=== PATIENT | male | born 1935 | race African-American/Black ===

== ENCOUNTER 2016-11-30 16:30 | Observation (INO) | payer OTHER ==
[~2016-11-30] VITALS: Ht 180.3 cm; Wt 102.7 kg
[~2016-11-30 16:30] MED LIST: ALBUTEROL SULF8.5 GM IH; ALPHAGAN P100 DROP/1 BOTH EYES; ALPHAGAN P100 DROP/5 BOTH EYES; AMLODIPINE BESYL5 MG PO; ANTIVERT25 MG PO; ASPIR-LOW81 MG PO; ASPIRIN325 MG PO; ATORVASTATIN CA80 MG PO; AVODART0.5 MG; AVODART0.5 MG PO; Antivert PO; B-COMPLEX PLUS1 EACH PO; BAYER ASPIRIN325 M1 PO; BENICAR40 MG; BENICAR40 MG PO; CILOSTAZOL100 MG PO; COQ-10100 MG PO; COUMADIN,JANTOVE1 MG PO; DIOVAN40 MG PO; FISH OIL300 MG PO; FLEXERIL5 MG PO; IMDUR30 MG PO; ISOSORBIDE MONO30 MG PO; LO-DOSE ASPIRIN81 M1 PO; LOPRESSOR50 MG PO; MECLIZINE HCL25 M3 PO; MECLIZINE HCL25 MG PO; METOPROLOL TART25 MG PO; METOPROLOL TART50 MG PO; MOTRIN600 MG PO; MOTRIN800 MG PO; NEXIUM40 MG PO; NORFLEX100 MG; NORFLEX100 MG PO; NORVASC10 MG PO; Norvasc PO; PRINIVIL10 MG PO; PROAIR HFA8.5 GM IH; Pletal PO; Proventil,Ventolin H IH; Robitussin DM PO; SELENIUM200 MCG PO; SIMVASTATIN80 MG; SIMVASTATIN80 MG PO; TRAMADOL HCL50 MG PO; TRAVATAN 0100 DROP/5 RIGHT EYE; TRAVATAN 050 DROP/2. BOTH EYES; TRAVATAN Z5 ML RIGHT EYE; TRENTAL400 MG PO; Tessalon Perle PO; VOLTAREN 1% GE100 GM TP; VOLTAREN75 MG; Voltaren PO; ZESTRIL,PRINIVI10 M1; ZOCOR80 M1 PO; Zithromax PO
[2016-11-30 17:00] LABS: HEMATOCRIT 37.8 % (38.0-50.0); MCHC 34.4 G/DL (30.0-36.0); MCV 95.9 FL (86-99); MEAN PLAT.VOLUME 10.6 uM^3 (9.0-12.4); PLATELET COUNT 175 K/uL (156-360); RBC DIS.WIDTH-CV 12.5 % (11.8-14.6); RBC DIS.WIDTH-SD 44.7 % (39-53); RED BLOOD COUNT 3.94 M/uL (4.00-5.50); WHITE BLOOD COUNT 7.3 K/uL (4.1-10.2)
[2016-11-30 17:11] LABS: CHLORIDE 99 mEq/L (99-109); POTASSIUM 3.9 mEq/L (3.7-5.4); SODIUM 130 mEq/L (136-147)
[2016-11-30 17:12] LABS: GLUCOSE 123 mg/dL (70-99)
[2016-11-30 17:14] LABS: ANION GAP 8 MEQ/L (2-14)
[2016-11-30 17:16] LABS: GFR ESTIMATE (CALCULATED) 58 mL/min/
[2016-11-30 17:17] LABS: UREA NITROGEN (BUN) 18 mg/dL (9-23)
[2016-11-30 17:21] LABS: TROP-I INTERPRETATION NEGATIVE; TROPONIN-I < 0.01 ng/mL (0.0-0.30)
[2016-11-30] MEDS ORDERED: LO-DOSE ASPIRIN81 M1 PO (17:57)
[2016-11-30] MEDS ORDERED: NEXIUM 24HR20 MG PO (17:58)
[2016-11-30] MEDS ORDERED: DIOVAN80 MG PO (17:59)
[2016-11-30] MEDS ORDERED: CARTIA XT120 MG PO (18:00)
[2016-11-30] MEDS ORDERED: CARAFATE1 GM PO (18:00)
[2016-11-30] MEDS ORDERED: RANITIDINE HCL300 MG PO (18:00)
[2016-11-30] MEDS ORDERED: PROMETHAZINE HC25 M1 PO (18:01)
[2016-11-30 19:44] LABS: ADD MIUA? YES; BILIRUBIN NEGATIVE; BLOOD NEGATIVE; COLOR YELLOW ((YELLOW)); GLUCOSE (STRIP) NEGATIVE; KETONES NEGATIVE; LEUKOCYTES NEGATIVE; NITRITE NEGATIVE; PROTEIN (STRIP) NEGATIVE; SPECIFIC GRAVITY 1.015 (1.000-1.030); UROBILINOGEN 0.2 MG/DL (0.2-1.0)
[2016-11-30 19:53] LABS: URIC ACID 6.3 mg/dL (3.1-9.2)
[2016-11-30 20:04] LABS: BACTERIA NONE SEEN /HPF; EPITHELIAL CELLS RARE /HPF; MUCUS TRACE /LPF; RED BLOOD CELLS NONE SEEN /HPF (0-5); WHITE BLOOD CELLS 0-5 /HPF (0-5)
[2016-11-30 21:10] VITALS: BP 150/82
[2016-11-30 23:38] LABS: TOTAL BILIRUBIN 0.4 mg/dL (0.0-1.0)
[2016-11-30 23:39] LABS: ALKALINE PHOSPHATASE 97 IU/L (3-129)
[2016-11-30 23:41] LABS: DIRECT BILIRUBIN 0.2 mg/dL (0.0-0.3)
[2016-11-30 23:42] LABS: LIPASE 73 U/L (1.0-51.0)
[2016-11-30 23:46] LABS: TROP-I INTERPRETATION NEGATIVE; TROPONIN-I < 0.01 ng/mL (0.0-0.30)
[2016-11-30 23:53] VITALS: BP 136/82
[2016-12-01] VITALS (7 sets, daily range): BP systolic 120–166; BP diastolic 75–90
[2016-12-01 05:55] LABS: HEMATOCRIT 37.2 % (38.0-50.0); MCH 33.2 PG (29.0-34.0); MCHC 34.4 G/DL (30.0-36.0); MCV 96.6 FL (86-99); MEAN PLAT.VOLUME 11.4 uM^3 (9.0-12.4); PLATELET COUNT 174 K/uL (156-360); RBC DIS.WIDTH-CV 12.8 % (11.8-14.6); RBC DIS.WIDTH-SD 45.3 % (39-53); RED BLOOD COUNT 3.85 M/uL (4.00-5.50); WHITE BLOOD COUNT 6.8 K/uL (4.1-10.2)
[2016-12-01 06:25] LABS: ANION GAP 6 MEQ/L (2-14); CHLORIDE 103 MEQ/L (99-109); GFR ESTIMATE (CALCULATED) > 59 mL/min/; GLUCOSE 121 mg/dL (70-99); POTASSIUM 4.1 MEQ/L (3.7-5.4); SAMPLE HEMOLYSIS CHECK 0; SAMPLE ICTERIC CHECK 0; SAMPLE LIPEMIA CHECK 0; SODIUM 135 MEQ/L (136-147); UREA NITROGEN (BUN) 16 mg/dL (9-23)
[2016-12-01 06:33] LABS: TROP-I INTERPRETATION NEGATIVE; TROPONIN-I 0.02 ng/mL (0.0-0.30)
[2016-12-01 20:09] LABS: TROP-I INTERPRETATION NEGATIVE; TROPONIN-I 0.02 ng/mL (0.0-0.30)
[2016-12-02] VITALS (7 sets, daily range): BP systolic 106–189; BP diastolic 63–93
[2016-12-02 09:40] LABS: MCH 34.2 PG (29.0-34.0); MCHC 34.9 G/DL (30.0-36.0); MCV 98.1 FL (86-99); MEAN PLAT.VOLUME 11.3 uM^3 (9.0-12.4); PLATELET COUNT 159 K/uL (156-360); RBC DIS.WIDTH-CV 12.7 % (11.8-14.6); RBC DIS.WIDTH-SD 45.5 % (39-53); RED BLOOD COUNT 3.77 M/uL (4.00-5.50); WHITE BLOOD COUNT 4.8 K/uL (4.1-10.2)
[2016-12-02 10:05] LABS: ANION GAP 5 MEQ/L (2-14); CHLORIDE 107 MEQ/L (99-109); GFR ESTIMATE (CALCULATED) > 59 mL/min/; GLUCOSE 114 mg/dL (70-99); LIPASE 46 U/L (1.0-51.0); POTASSIUM 3.8 MEQ/L (3.7-5.4); SAMPLE HEMOLYSIS CHECK 0; SAMPLE ICTERIC CHECK 0; SAMPLE LIPEMIA CHECK 0; SODIUM 138 MEQ/L (136-147); UREA NITROGEN (BUN) 13 mg/dL (9-23)
[2016-12-03 00:33] VITALS: BP 136/77
[2016-12-03 04:20] VITALS: BP 152/90
[2016-12-03 09:20] VITALS: BP 167/93
[2016-12-03 09:38] LABS: HEMATOCRIT 39.1 % (38.0-50.0); MCH 33.2 PG (29.0-34.0); MCHC 34.3 G/DL (30.0-36.0); MCV 96.8 FL (86-99); MEAN PLAT.VOLUME 10.7 uM^3 (9.0-12.4); PLATELET COUNT 166 K/uL (156-360); RBC DIS.WIDTH-CV 12.6 % (11.8-14.6); RBC DIS.WIDTH-SD 45.1 % (39-53); RED BLOOD COUNT 4.04 M/uL (4.00-5.50); WHITE BLOOD COUNT 5.7 K/uL (4.1-10.2)
[2016-12-03 10:12] LABS: ANION GAP 6 MEQ/L (2-14); CHLORIDE 104 MEQ/L (99-109); GFR ESTIMATE (CALCULATED) > 59 mL/min/; GLUCOSE 157 mg/dL (70-99); SAMPLE HEMOLYSIS CHECK 0; SAMPLE ICTERIC CHECK 0; SAMPLE LIPEMIA CHECK 0; SODIUM 136 MEQ/L (136-147); UREA NITROGEN (BUN) 13 mg/dL (9-23)
[2016-12-03 11:22] VITALS: BP 134/87
== END 2016-12-03 13:30 | disposition home or self-care (01) ==
LOC: EME 16:30 → 4EAST 18:55 → EDOF 18:55 → 4EAST 21:01
PROVIDERS: Emergency Medicine; Hospitalist; Internal Medicine; Physician Assistant
DX: R07.89 Other chest pain (principal); I95.9 Hypotension, unspecified; E86.0 Dehydration; J44.9 Chronic obstructive pulmonary disease, unspecified; E11.9 Type 2 diabetes mellitus without complications; I13.0 Hypertensive heart and chronic kidney disease with heart failure and stage 1 through stage 4 chronic kidney disease, or unspecified chronic kidney disease; I50.9 Heart failure, unspecified; N18.2 Chronic kidney disease, stage 2 (mild); I25.2 Old myocardial infarction; G47.33 Obstructive sleep apnea (adult) (pediatric); K21.9 Gastro-esophageal reflux disease without esophagitis; E78.5 Hyperlipidemia, unspecified; Z95.1 Presence of aortocoronary bypass graft; Z95.5 Presence of coronary angioplasty implant and graft; R10.9 Unspecified abdominal pain; N28.1 Cyst of kidney, acquired; N40.1 Benign prostatic hyperplasia with lower urinary tract symptoms; R35.1 Nocturia; E66.9 Obesity, unspecified; Z68.30 Body mass index [BMI] 30.0-30.9, adult; N17.9 Acute kidney failure, unspecified; E87.1 Hypo-osmolality and hyponatremia; N52.9 Male erectile dysfunction, unspecified
CPT/HCPCS: 71020; 74176; 76705; 80048; 80076; 81003; 82436; 82533 91; 82607; 83690; 83880; 84133; 84300; 84443; 84484; 84550; 85027; 93005; 99281; 99285; G0378; J1644; J7030

== ENCOUNTER 2016-12-08 11:56 | Day surgery (SDC) | payer OTHER ==
[~2016-12-08] VITALS: Ht 180.3 cm; Wt 95.3 kg
[~2016-12-08 11:56] MED LIST changes: +CARAFATE1 GM PO; +CARTIA XT120 MG PO; +DIOVAN80 MG PO; +NEXIUM 24HR20 MG PO; +PROMETHAZINE HC25 M1 PO; +RANITIDINE HCL300 MG PO
== END 2016-12-08 14:07 | disposition home or self-care (01) ==
LOC: PAIN 11:56 → SDC 13:00 → PAIN 13:00
DX: M47.812 Spondylosis without myelopathy or radiculopathy, cervical region (principal); M54.2 Cervicalgia; V49.60XS Unspecified car occupant injured in collision with unspecified motor vehicles in traffic accident, sequela; M47.816 Spondylosis without myelopathy or radiculopathy, lumbar region; I10 Essential (primary) hypertension; E78.5 Hyperlipidemia, unspecified; E11.9 Type 2 diabetes mellitus without complications; I73.9 Peripheral vascular disease, unspecified; G47.30 Sleep apnea, unspecified; K21.9 Gastro-esophageal reflux disease without esophagitis; I25.10 Atherosclerotic heart disease of native coronary artery without angina pectoris; Z95.1 Presence of aortocoronary bypass graft; Z86.73 Personal history of transient ischemic attack (TIA), and cerebral infarction without residual deficits; Z85.3 Personal history of malignant neoplasm of breast; Z79.82 Long term (current) use of aspirin; Z79.891 Long term (current) use of opiate analgesic; Z88.0 Allergy status to penicillin
CPT/HCPCS: J1030; J3010; S0020

== ENCOUNTER 2016-12-19 09:06 | Day surgery (SDC) | payer OTHER ==
[~2016-12-19] VITALS: Ht 180.3 cm; Wt 95.3 kg
== END 2016-12-19 11:20 | disposition home or self-care (01) ==
LOC: PAIN 09:06
DX: M47.812 Spondylosis without myelopathy or radiculopathy, cervical region (principal); M54.2 Cervicalgia; M50.20 Other cervical disc displacement, unspecified cervical region; M47.816 Spondylosis without myelopathy or radiculopathy, lumbar region; M54.5 Low back pain; I25.10 Atherosclerotic heart disease of native coronary artery without angina pectoris; E78.5 Hyperlipidemia, unspecified; M62.81 Muscle weakness (generalized); E66.9 Obesity, unspecified; Z68.30 Body mass index [BMI] 30.0-30.9, adult; I73.9 Peripheral vascular disease, unspecified; K21.0 Gastro-esophageal reflux disease with esophagitis; G47.30 Sleep apnea, unspecified; Z85.3 Personal history of malignant neoplasm of breast; Z79.82 Long term (current) use of aspirin; Z79.891 Long term (current) use of opiate analgesic; Z86.73 Personal history of transient ischemic attack (TIA), and cerebral infarction without residual deficits; Z95.1 Presence of aortocoronary bypass graft; Z88.0 Allergy status to penicillin
CPT/HCPCS: J1030; J2250; J3010

== ENCOUNTER 2016-12-22 16:29 | Inpatient (IN) | payer OTHER ==
[~2016-12-22] VITALS: Ht 180.3 cm; Wt 98.5 kg
[2016-12-22 17:03] LABS: EOSINOPHIL (%) 0.2 % (0-5); HEMATOCRIT 37.4 % (38.0-50.0); IMMATURE GRANULOCYTE (%) 0.8 % (0.0-0.7); IMMATURE GRANULOCYTE COUNT 0.1 K/uL; LYMPHOCYTE COUNT 1.4 K/uL (1.0-2.8); MCH 33.4 PG (29.0-34.0); MCHC 34.8 G/DL (30.0-36.0); MCV 96.1 FL (86-99); MEAN PLAT.VOLUME 11.5 uM^3 (9.0-12.4); MONOCYTE (%) 6.9 % (3-12); MONOCYTE COUNT 0.8 K/uL (0-0.8); NEUTROPHIL (%) 79.7 % (45-76); PLATELET COUNT 194 K/uL (156-360); RBC DIS.WIDTH-CV 13.2 % (11.8-14.6); RBC DIS.WIDTH-SD 46.7 % (39-53); RED BLOOD COUNT 3.89 M/uL (4.00-5.50); WHITE BLOOD COUNT 11.2 K/uL (4.1-10.2)
[2016-12-22 17:22] LABS: AMYLASE 79 IU/L (1-118); CHLORIDE 98 mEq/L (99-109); POTASSIUM 5.1 mEq/L (3.7-5.4); SODIUM 128 mEq/L (136-147)
[2016-12-22 17:24] LABS: GLUCOSE 230 mg/dL (70-99)
[2016-12-22 17:25] LABS: ANION GAP 9 MEQ/L (2-14)
[2016-12-22 17:27] LABS: SERUM ETHYL ALCOHOL < 10 mg/dL
[2016-12-22 17:28] LABS: GFR ESTIMATE (CALCULATED) > 59 mL/min/; UREA NITROGEN (BUN) 18 mg/dL (9-23)
[2016-12-22 17:31] LABS: LIPASE 76 U/L (1.0-51.0)
[2016-12-22 18:38] LABS: INTER. NORMALIZED RATIO 1.1; PROTHROMBIN TIME 10.8 (9.2-11.2); PTT 24.4 (25-32)
[2016-12-22 20:45] VITALS: BP 150/68
[2016-12-22 20:53] VITALS: BP 170/71
[2016-12-22 21:00] VITALS: BP 129/67
[2016-12-22 22:00] VITALS: BP 126/56
[2016-12-22 22:28] LABS: METH RESISTANT S AUREUS PCR NEGATIVE (NEGATIVE); PROBE CHECK PASS; SPECIMEN PROCESSING CONTROL PASS
[2016-12-22 23:00] VITALS: BP 118/26
[2016-12-23] VITALS (21 sets, daily range): BP systolic 94–184; BP diastolic 26–92
[2016-12-23 02:38] LABS: ADD MIUA? YES; BILIRUBIN NEGATIVE; BLOOD MODERATE; COLOR YELLOW ((YELLOW)); GLUCOSE (STRIP) NEGATIVE; KETONES NEGATIVE; LEUKOCYTES NEGATIVE; NITRITE NEGATIVE; PROTEIN (STRIP) NEGATIVE; UROBILINOGEN 0.2 MG/DL (0.2-1.0)
[2016-12-23 02:51] LABS: BACTERIA NONE SEEN /HPF; EPITHELIAL CELLS NONE SEEN /HPF; MUCUS TRACE /LPF; UCUL ADDED? NO
[2016-12-23 02:56] LABS: ADD MIUA? YES; BILIRUBIN NEGATIVE; BLOOD MODERATE; GLUCOSE (STRIP) NEGATIVE; KETONES NEGATIVE; LEUKOCYTES NEGATIVE; NITRITE NEGATIVE; PROTEIN (STRIP) NEGATIVE; UROBILINOGEN 0.2 MG/DL (0.2-1.0)
[2016-12-23 03:00] LABS: UCUL ADDED? NO
[2016-12-23 03:01] LABS: COLOR YELLOW ((YELLOW))
[2016-12-23 03:34] LABS: AMPHETAMINE NEGATIVE (500 ng/mL); COCAINE NEGATIVE (150 ng/mL); METHAMPHETAMINE NEGATIVE (500 ng/mL); PHENCYCLIDINE NEGATIVE (25 ng/mL); THC CANNABINOIDS NEGATIVE (50 ng/mL)
[2016-12-23 03:35] LABS: ADD MEDTOX COMMENT Y; BARBITURATES NEGATIVE (200 ng/mL); BENZODIAZEPINES NEGATIVE (150 ng/mL); INTERNAL CONTROLS VALID? YES; METHADONE NEGATIVE (200 ng/mL); OPIATES (MORPHINE) PRESUMPTIVE POSITIVE (100 ng/mL); OXYCODONE NEGATIVE (100 ng/mL); PROPOXYPHENE NEGATIVE (300 ng/mL); TRICYCLIC ANTIDEPRESSANTS NEGATIVE (300 ng/mL)
[2016-12-23 06:54] LABS: HEMATOCRIT 35.3 % (38.0-50.0); MCHC 34.6 G/DL (30.0-36.0); MCV 98.3 FL (86-99); RBC DIS.WIDTH-CV 13.4 % (11.8-14.6); RBC DIS.WIDTH-SD 48.2 % (39-53); RED BLOOD COUNT 3.59 M/uL (4.00-5.50); WHITE BLOOD COUNT 11.1 K/uL (4.1-10.2)
[2016-12-23 07:42] LABS: PLAT.SUFFICIENCY ADEQUATE; PLATELET CLUMPS PRESENT - PLATELET COUNT APPEARS ADQ.
[2016-12-23 08:03] LABS: ALKALINE PHOSPHATASE 96 IU/L (3-129); ANION GAP ND MEQ/L (2-14); GFR ESTIMATE (CALCULATED) 47 mL/min/; GLUCOSE 165 mg/dL (70-99); SAMPLE HEMOLYSIS CHECK 0; SAMPLE ICTERIC CHECK 0; SAMPLE LIPEMIA CHECK 0; TOTAL BILIRUBIN 0.9 MG/DL (0.0-1.0); UREA NITROGEN (BUN) 23 mg/dL (9-23)
[2016-12-23 08:08] LABS: PLATELET COUNT UNABLE TO REPORT K/uL (156-360)
[2016-12-23 09:13] LABS: CHLORIDE 96 MEQ/L (99-109); POTASSIUM 5.9 MEQ/L (3.7-5.4); SODIUM 129 MEQ/L (136-147)
[2016-12-24] VITALS (20 sets, daily range): BP systolic 109–215; BP diastolic 55–88
[2016-12-24 07:55] LABS: EOSINOPHIL (%) 0.8 % (0-5); EOSINOPHIL COUNT 0.1 K/uL (0-0.3); HEMATOCRIT 27.4 % (38.0-50.0); IMMATURE GRANULOCYTE (%) 0.6 % (0.0-0.7); IMMATURE GRANULOCYTE COUNT 0.1 K/uL; INSTRUMENT ABS NEUTROPHIL CT 6.4 K/uL; LYMPHOCYTE COUNT 1.1 K/uL (1.0-2.8); MCH 33.5 PG (29.0-34.0); MCHC 34.3 G/DL (30.0-36.0); MCV 97.5 FL (86-99); MEAN PLAT.VOLUME 11.3 uM^3 (9.0-12.4); MONOCYTE (%) 12.4 % (3-12); MONOCYTE COUNT 1.1 K/uL (0-0.8); NEUTROPHIL (%) 73.3 % (45-76); NEUTROPHIL COUNT 6.4 K/uL (1.8-6.4); RBC DIS.WIDTH-CV 13.2 % (11.8-14.6); RBC DIS.WIDTH-SD 47.6 % (39-53); WHITE BLOOD COUNT 8.8 K/uL (4.1-10.2)
[2016-12-24 07:57] LABS: PLATELET COUNT 125 K/uL (156-360); RED BLOOD COUNT 2.81 M/uL (4.00-5.50)
[2016-12-24 08:24] LABS: ANION GAP 5 MEQ/L (2-14); CHLORIDE 92 MEQ/L (99-109); GFR ESTIMATE (CALCULATED) > 59 mL/min/; GLUCOSE 153 mg/dL (70-99); MAGNESIUM 1.9 mg/dl (1.3-2.7); POTASSIUM 4.6 MEQ/L (3.7-5.4); SAMPLE HEMOLYSIS CHECK 0; SAMPLE ICTERIC CHECK 0; SAMPLE LIPEMIA CHECK 0; SODIUM 122 MEQ/L (136-147); UREA NITROGEN (BUN) 24 mg/dL (9-23)
[2016-12-25] VITALS (22 sets, daily range): BP systolic 102–182; BP diastolic 52–98
[2016-12-25 05:59] LABS: ANION GAP 5 MEQ/L (2-14); CHLORIDE 96 MEQ/L (99-109); GFR ESTIMATE (CALCULATED) > 59 mL/min/; GLUCOSE 172 mg/dL (70-99); POTASSIUM 4.4 MEQ/L (3.7-5.4); SAMPLE HEMOLYSIS CHECK 0; SAMPLE ICTERIC CHECK 0; SAMPLE LIPEMIA CHECK 0; SODIUM 126 MEQ/L (136-147); UREA NITROGEN (BUN) 19 mg/dL (9-23)
[2016-12-26 00:10] VITALS: BP 139/96
[2016-12-26 08:57] VITALS: BP 141/82
[2016-12-26 15:59] VITALS: BP 130/87
[2016-12-26 23:50] VITALS: BP 138/70
[2016-12-27 07:48] VITALS: BP 140/95
[2016-12-27 16:00] VITALS: BP 142/72
[2016-12-27 19:23] VITALS: BP 153/73
[2016-12-27 23:49] VITALS: BP 133/90
[2016-12-28 03:57] VITALS: BP 139/87
[2016-12-28 08:26] VITALS: BP 142/86
[2016-12-28 11:11] VITALS: BP 175/98
[2016-12-28 16:29] VITALS: BP 129/72
[2016-12-28 19:57] LABS: BASE EXCESS 0.4 mEq/L (-3 to +3); BICARBONATE 24.5 mEq/L (22-26); CARBOXY HGB 1.9 % (0-5); COMMENTS - BLOOD GASES A+C+; METHEMOGLOBIN 1.3 % (0-1.5); PCO2 36 mm Hg (35-45); PO2 68 mm Hg (80-100); SITE RB; pH 7.44 (7.35-7.45)
[2016-12-28 19:58] VITALS: BP 138/81
[2016-12-28 19:58] LABS: DEVICE CPAP; O2 FLOW 2 L/MIN
[2016-12-28 20:01] LABS: EOSINOPHIL (%) 2.5 % (0-5); EOSINOPHIL COUNT 0.2 K/uL (0-0.3); HEMATOCRIT 24.9 % (38.0-50.0); IMMATURE GRANULOCYTE (%) 0.7 % (0.0-0.7); IMMATURE GRANULOCYTE COUNT 0.1 K/uL; INSTRUMENT ABS NEUTROPHIL CT 6.5 K/uL; LYMPHOCYTE COUNT 1.2 K/uL (1.0-2.8); MCH 33.6 PG (29.0-34.0); MCHC 34.5 G/DL (30.0-36.0); MCV 97.3 FL (86-99); MEAN PLAT.VOLUME 10.5 uM^3 (9.0-12.4); MONOCYTE (%) 9.9 % (3-12); MONOCYTE COUNT 0.9 K/uL (0-0.8); NEUTROPHIL (%) 72.8 % (45-76); NEUTROPHIL COUNT 6.5 K/uL (1.8-6.4); PLATELET COUNT 151 K/uL (156-360); RBC DIS.WIDTH-CV 13.2 % (11.8-14.6); RBC DIS.WIDTH-SD 47.4 % (39-53); RED BLOOD COUNT 2.56 M/uL (4.00-5.50); WHITE BLOOD COUNT 8.9 K/uL (4.1-10.2)
[2016-12-28 20:27] LABS: ANION GAP 7 MEQ/L (2-14); CHLORIDE 93 MEQ/L (99-109); POTASSIUM 4.3 MEQ/L (3.7-5.4); SAMPLE HEMOLYSIS CHECK 0; SAMPLE ICTERIC CHECK 0; SAMPLE LIPEMIA CHECK 0; SODIUM 125 MEQ/L (136-147)
[2016-12-28 20:33] LABS: GFR ESTIMATE (CALCULATED) > 59 mL/min/; GLUCOSE 194 mg/dL (70-99); UREA NITROGEN (BUN) 16 mg/dL (9-23)
[2016-12-28 23:13] VITALS: BP 170/77
[2016-12-29 04:48] VITALS: BP 145/70
[2016-12-29 07:40] VITALS: BP 171/83
[2016-12-29 09:45] LABS: EOSINOPHIL (%) 1.7 % (0-5); EOSINOPHIL COUNT 0.2 K/uL (0-0.3); HEMATOCRIT 25.8 % (38.0-50.0); IMMATURE GRANULOCYTE (%) 0.7 % (0.0-0.7); IMMATURE GRANULOCYTE COUNT 0.1 K/uL; INSTRUMENT ABS NEUTROPHIL CT 6.8 K/uL; MCH 33.9 PG (29.0-34.0); MCHC 35.7 G/DL (30.0-36.0); MCV 95.2 FL (86-99); MEAN PLAT.VOLUME 11.4 uM^3 (9.0-12.4); MONOCYTE (%) 9.1 % (3-12); MONOCYTE COUNT 0.8 K/uL (0-0.8); NEUTROPHIL (%) 77.2 % (45-76); NEUTROPHIL COUNT 6.8 K/uL (1.8-6.4); PLATELET COUNT 168 K/uL (156-360); RBC DIS.WIDTH-CV 13.2 % (11.8-14.6); RBC DIS.WIDTH-SD 46.2 % (39-53); RED BLOOD COUNT 2.71 M/uL (4.00-5.50); WHITE BLOOD COUNT 8.8 K/uL (4.1-10.2)
[2016-12-29 10:49] LABS: ANION GAP 11 MEQ/L (2-14); CHLORIDE 90 MEQ/L (99-109); GFR ESTIMATE (CALCULATED) > 59 mL/min/; GLUCOSE 164 mg/dL (70-99); POTASSIUM 4.1 MEQ/L (3.7-5.4); SAMPLE HEMOLYSIS CHECK 0; SAMPLE ICTERIC CHECK 0; SAMPLE LIPEMIA CHECK 0; SODIUM 125 MEQ/L (136-147); UREA NITROGEN (BUN) 16 mg/dL (9-23)
[2016-12-29] MEDS ORDERED: NORCO 5/3251 TABLET PO (11:08)
[2016-12-29] MEDS ORDERED: VALIUM5 MG PO (11:08)
[2016-12-29 11:48] VITALS: BP 184/85
== END 2016-12-29 15:57 | DRG 510 ==
LOC: TRA 16:29 → 3EAST 17:56 → 4WEST 17:56 → EDOF 17:56 → 4WEST 20:25 → 3EAST 12-26 00:06
PROVIDERS: Emergency Medicine; Internal Medicine Pulmonary Disease; Surgery
PROC: 0HQ0XZZ Repair Scalp Skin, External Approach (ICD-10-PCS; principal; 2016-12-22)
PROC: 0PSJ04Z Reposition Left Radius with Internal Fixation Device, Open Approach (ICD-10-PCS; 2016-12-24)
DX: S52.132A Displaced fracture of neck of left radius, initial encounter for closed fracture (principal); S06.5X9A Traumatic subdural hemorrhage with loss of consciousness of unspecified duration, initial encounter; S12.500A Unspecified displaced fracture of sixth cervical vertebra, initial encounter for closed fracture; I95.9 Hypotension, unspecified; I27.2 Other secondary pulmonary hypertension; M48.54XA Collapsed vertebra, not elsewhere classified, thoracic region, initial encounter for fracture; I74.19 Embolism and thrombosis of other parts of aorta; E87.1 Hypo-osmolality and hyponatremia; V43.52XA Car driver injured in collision with other type car in traffic accident, initial encounter; Z95.5 Presence of coronary angioplasty implant and graft; Z85.3 Personal history of malignant neoplasm of breast; Z95.1 Presence of aortocoronary bypass graft; E78.5 Hyperlipidemia, unspecified; G47.33 Obstructive sleep apnea (adult) (pediatric); I12.9 Hypertensive chronic kidney disease with stage 1 through stage 4 chronic kidney disease, or unspecified chronic kidney disease; I25.10 Atherosclerotic heart disease of native coronary artery without angina pectoris; I25.2 Old myocardial infarction; J98.11 Atelectasis; K21.9 Gastro-esophageal reflux disease without esophagitis; N18.2 Chronic kidney disease, stage 2 (mild); N40.0 Benign prostatic hyperplasia without lower urinary tract symptoms; S01.01XA Laceration without foreign body of scalp, initial encounter; S12.600A Unspecified displaced fracture of seventh cervical vertebra, initial encounter for closed fracture; S16.1XXA Strain of muscle, fascia and tendon at neck level, initial encounter; G62.9 Polyneuropathy, unspecified; R06.09 Other forms of dyspnea; N28.9 Disorder of kidney and ureter, unspecified; M25.429 Effusion, unspecified elbow; M25.512 Pain in left shoulder; M25.521 Pain in right elbow; M79.662 Pain in left lower leg; R09.89 Other specified symptoms and signs involving the circulatory and respiratory systems; E66.9 Obesity, unspecified; S52.122A Displaced fracture of head of left radius, initial encounter for closed fracture; H11.32 Conjunctival hemorrhage, left eye; M50.322 Other cervical disc degeneration at C5-C6 level; M50.323 Other cervical disc degeneration at C6-C7 level
CPT/HCPCS: 36600; 70450; 70486; 71010; 71260; 71275; 72040; 72125; 72129; 72132; 73030; 73060; 73070; 73080; 73090; 73200; 73590; 74177; 76000; 80048; 80053; 81003; 82150; 82803; 83690; 83735; 84100; 84999; 85025; 85027; 85610; 85730; 86900; 86901; 87641; 93005; 93306; 94640; 94660; 94799; 97530 GP; 99202; C1713; C1769; G0480; J0131; J0360; J1100; J1170; J1940; J2270; J2405; J3010; J7030; J7120; S0020

== ENCOUNTER 2016-12-31 00:28 | Inpatient (IN) | payer OTHER ==
[~2016-12-31] VITALS: Ht 180.3 cm; Wt 101.1 kg
[~2016-12-31 00:28] MED LIST changes: +NORCO 5/3251 TABLET PO; +VALIUM5 MG PO
[2016-12-31 02:25] LABS: HEMATOCRIT 24.2 % (38.0-50.0); MCH 33.1 PG (29.0-34.0); MCHC 35.1 G/DL (30.0-36.0); MCV 94.2 FL (86-99); MEAN PLAT.VOLUME 10.9 uM^3 (9.0-12.4); PLATELET COUNT 200 K/uL (156-360); RBC DIS.WIDTH-CV 12.6 % (11.8-14.6); RBC DIS.WIDTH-SD 43.6 % (39-53); RED BLOOD COUNT 2.57 M/uL (4.00-5.50); WHITE BLOOD COUNT 9.4 K/uL (4.1-10.2)
[2016-12-31 02:34] LABS: CHLORIDE 93 mEq/L (99-109); POTASSIUM 3.9 mEq/L (3.7-5.4); SODIUM 127 mEq/L (136-147)
[2016-12-31 02:35] LABS: GLUCOSE 166 mg/dL (70-99)
[2016-12-31 02:37] LABS: ANION GAP 11 MEQ/L (2-14)
[2016-12-31 02:39] LABS: GFR ESTIMATE (CALCULATED) > 59 mL/min/
[2016-12-31 02:40] LABS: UREA NITROGEN (BUN) 15 mg/dL (9-23)
[2016-12-31 02:43] LABS: D-DIMER ELISA > 4.00 mg/L FEU (< 0.57)
[2016-12-31 02:44] LABS: TROP-I INTERPRETATION NEGATIVE; TROPONIN-I 0.04 ng/mL (0.0-0.30)
[2016-12-31 05:47] VITALS: BP 150/82
[2016-12-31] MEDS ORDERED: OMEPRAZOLE20 MG PO (06:01)
[2016-12-31] MEDS ORDERED: IRON325 M1 PO (06:02)
[2016-12-31] MEDS ORDERED: LATANOPROST2.5 ML RIGHT EYE (06:04)
[2016-12-31] MEDS ORDERED: LOSARTAN POTASS50 MG PO (06:07)
[2016-12-31] MEDS ORDERED: VITAMIN C250 MG PO (06:08)
[2016-12-31 07:24] VITALS: BP 150/80
[2016-12-31 11:34] VITALS: BP 142/92
[2016-12-31 15:54] VITALS: BP 124/69
[2016-12-31 19:39] VITALS: BP 137/71
[2017-01-01] VITALS (7 sets, daily range): BP systolic 108–161; BP diastolic 61–78
[2017-01-02 04:38] VITALS: BP 118/62
[2017-01-02 08:00] VITALS: BP 143/79
[2017-01-02] MEDS ORDERED: ESOMEPRAZOLE MA20 MG PO (11:26)
[2017-01-02] MEDS ORDERED: METOPROLOL TART75 MG PO (11:31)
[2017-01-02] MEDS ORDERED: DUONEB 2.5-0.5 M3 ML AEROSOL (11:32)
[2017-01-02] MEDS ORDERED: NORCO 5/3251 TABLET PO (11:34)
[2017-01-02 14:51] VITALS: BP 138/77
[2017-01-02 15:45] VITALS: BP 120/73
[2017-01-02 20:23] VITALS: BP 136/80
[2017-01-02 23:40] VITALS: BP 184/86
[2017-01-03] VITALS (7 sets, daily range): BP systolic 144–180; BP diastolic 70–88
[2017-01-03 21:53] LABS: C DIFF TOXIN NEGATIVE (NEGATIVE)
[2017-01-03 21:56] LABS: PROBE CHECK PASS; SPECIMEN PROCESSING CONTROL PASS
[2017-01-04 00:28] VITALS: BP 173/87
[2017-01-04 03:46] VITALS: BP 173/74
[2017-01-04 08:05] VITALS: BP 180/90
[2017-01-04 13:10] VITALS: BP 142/76
== END 2017-01-04 14:37 | DRG 982 ==
LOC: EME → EDBD 00:28 → EME 00:28 → EDOF 04:26 → 3EAST 04:26
PROVIDERS: Emergency Medicine; Physician Assistant Surgical
PROC: 0PSJ04Z Reposition Left Radius with Internal Fixation Device, Open Approach (ICD-10-PCS; principal; 2016-12-31)
PROC: 5A09357 Assistance with Respiratory Ventilation, Less than 24 Consecutive Hours, Continuous Positive Airway Pressure (ICD-10-PCS; principal; 2016-12-31)
DX: S06.5X9A Traumatic subdural hemorrhage with loss of consciousness of unspecified duration, initial encounter (principal); S52.132A Displaced fracture of neck of left radius, initial encounter for closed fracture; R09.02 Hypoxemia; S22.32XA Fracture of one rib, left side, initial encounter for closed fracture; I11.0 Hypertensive heart disease with heart failure; I50.9 Heart failure, unspecified; G47.33 Obstructive sleep apnea (adult) (pediatric); E78.5 Hyperlipidemia, unspecified; Z79.899 Other long term (current) drug therapy; I25.9 Chronic ischemic heart disease, unspecified; E11.9 Type 2 diabetes mellitus without complications; V43.52XD Car driver injured in collision with other type car in traffic accident, subsequent encounter; I25.2 Old myocardial infarction; Z79.82 Long term (current) use of aspirin; Z95.1 Presence of aortocoronary bypass graft; Z74.01 Bed confinement status; R09.89 Other specified symptoms and signs involving the circulatory and respiratory systems; I51.3 Intracardiac thrombosis, not elsewhere classified
CPT/HCPCS: 71020; 71275; 72131; 74176; 80048; 83880; 84484; 85027; 85379; 87493; 93005; 94640; 94640 76; 94660; 94760; 94799; 97530 GO; 97530 GP; 99281; 99285; J2270; J2405; J7040

== ENCOUNTER 2017-03-26 14:39 | Observation (INO) | payer OTHER ==
[~2017-03-26] VITALS: Ht 180.3 cm; Wt 93.6 kg
[~2017-03-26 14:39] MED LIST changes: +DUONEB 2.5-0.5 M3 ML AEROSOL; +ESOMEPRAZOLE MA20 MG PO; +IRON325 M1 PO; +LATANOPROST2.5 ML BOTH EYES; +LOSARTAN POTASS50 MG PO; +METOPROLOL TART75 MG PO; +OMEPRAZOLE20 MG PO; +VITAMIN C250 MG PO
[2017-03-26 15:47] LABS: EOSINOPHIL (%) 7.4 % (0-5); EOSINOPHIL COUNT 0.4 K/uL (0-0.3); HEMATOCRIT 31.2 % (38.0-50.0); IMMATURE GRANULOCYTE (%) 0.2 % (0.0-0.7); INSTRUMENT ABS NEUTROPHIL CT 3.2 K/uL; LYMPHOCYTE COUNT 1.6 K/uL (1.0-2.8); MCH 30.7 PG (29.0-34.0); MCHC 33.7 G/DL (30.0-36.0); MCV 91.2 FL (86-99); MEAN PLAT.VOLUME 9.9 uM^3 (9.0-12.4); MONOCYTE (%) 8.4 % (3-12); MONOCYTE COUNT 0.5 K/uL (0-0.8); NEUTROPHIL (%) 55.6 % (45-76); NEUTROPHIL COUNT 3.2 K/uL (1.8-6.4); PLATELET COUNT 186 K/uL (156-360); RBC DIS.WIDTH-CV 13.6 % (11.8-14.6); RBC DIS.WIDTH-SD 45.6 % (39-53); RED BLOOD COUNT 3.42 M/uL (4.00-5.50); WHITE BLOOD COUNT 5.7 K/uL (4.1-10.2)
[2017-03-26 15:52] LABS: INTER. NORMALIZED RATIO 1.1; PROTHROMBIN TIME 12.3 SEC (10.2-12.9)
[2017-03-26 15:55] LABS: CHLORIDE 103 mEq/L (99-109); POTASSIUM 3.8 mEq/L (3.7-5.4); PTT 28.7 SEC (25-37); SODIUM 132 mEq/L (136-147)
[2017-03-26 15:57] LABS: GLUCOSE 134 mg/dL (70-99)
[2017-03-26 15:59] LABS: ANION GAP 6 MEQ/L (2-14); TOTAL BILIRUBIN 0.3 mg/dL (0.0-1.0)
[2017-03-26 16:01] LABS: ALKALINE PHOSPHATASE 124 IU/L (3-129); GFR ESTIMATE (CALCULATED) > 59 mL/min/
[2017-03-26 16:02] LABS: UREA NITROGEN (BUN) 11 mg/dL (9-23)
[2017-03-26 16:03] LABS: DIRECT BILIRUBIN 0.1 mg/dL (0.0-0.3)
[2017-03-26 16:05] LABS: LIPASE 54 U/L (1.0-51.0)
[2017-03-26 16:07] LABS: TROP-I INTERPRETATION NEGATIVE; TROPONIN-I 0.02 ng/mL (0.0-0.30)
[2017-03-26 16:50] LABS: ADD MIUA? NO; BILIRUBIN NEGATIVE; BLOOD NEGATIVE; COLOR STRAW ((YELLOW)); GLUCOSE (STRIP) NEGATIVE; KETONES NEGATIVE; LEUKOCYTES NEGATIVE; NITRITE NEGATIVE; PROTEIN (STRIP) NEGATIVE; SPECIFIC GRAVITY 1.009 (1.000-1.030); UCUL ADDED? NO; UROBILINOGEN 0.2 MG/DL (0.2-1.0)
[2017-03-26] MEDS ORDERED: VALSARTAN80 MG PO (19:30)
[2017-03-26] MEDS ORDERED: MIRTAZAPINE30 MG PO (19:30)
[2017-03-26 22:53] VITALS: BP 135/99
[2017-03-26 23:57] VITALS: BP 164/88
[2017-03-27] LABS: TROP-I INTERPRETATION NEGATIVE; TROPONIN-I 0.02 ng/mL (0.0-0.30)
[2017-03-27 03:46] VITALS: BP 168/78
[2017-03-27 05:50] LABS: HEMATOCRIT 32.6 % (38.0-50.0); MCV 93.9 FL (86-99); MEAN PLAT.VOLUME 11.3 uM^3 (9.0-12.4); PLATELET COUNT 191 K/uL (156-360); RBC DIS.WIDTH-SD 47.9 % (39-53); RED BLOOD COUNT 3.47 M/uL (4.00-5.50); WHITE BLOOD COUNT 5.6 K/uL (4.1-10.2)
[2017-03-27 06:11] LABS: ANION GAP 8 MEQ/L (2-14); CHLORIDE 105 MEQ/L (99-109); GFR ESTIMATE (CALCULATED) > 59 mL/min/; GLUCOSE 140 mg/dL (70-99); POTASSIUM 4.1 MEQ/L (3.7-5.4); SAMPLE HEMOLYSIS CHECK 0; SAMPLE ICTERIC CHECK 0; SAMPLE LIPEMIA CHECK 0; SODIUM 137 MEQ/L (136-147); UREA NITROGEN (BUN) 11 mg/dL (9-23)
[2017-03-27 06:15] LABS: TROP-I INTERPRETATION NEGATIVE; TROPONIN-I 0.02 ng/mL (0.0-0.30)
[2017-03-27 08:16] VITALS: BP 156/93
[2017-03-27 11:52] VITALS: BP 137/79
[2017-03-27] MEDS ORDERED: ROBAXIN500 MG PO (14:34)
[2017-03-27] MEDS ORDERED: ULTRAM50 MG PO (14:34)
== END 2017-03-27 15:33 | disposition home or self-care (01) ==
LOC: EME 14:39 → EDOF 20:51 → 5WEST 20:51 → EDOF 20:51 → ENRESERV 20:53 → 5WEST 22:26 → ENPENDDIS 03-27 → 5WEST 03-27 15:33
PROVIDERS: Emergency Medicine; Hospitalist
DX: R07.9 Chest pain, unspecified (principal); M79.604 Pain in right leg; M79.605 Pain in left leg; R10.31 Right lower quadrant pain; N28.1 Cyst of kidney, acquired; I25.10 Atherosclerotic heart disease of native coronary artery without angina pectoris; I12.9 Hypertensive chronic kidney disease with stage 1 through stage 4 chronic kidney disease, or unspecified chronic kidney disease; N18.9 Chronic kidney disease, unspecified; E11.22 Type 2 diabetes mellitus with diabetic chronic kidney disease; Z95.1 Presence of aortocoronary bypass graft; Z95.5 Presence of coronary angioplasty implant and graft; E78.5 Hyperlipidemia, unspecified; E66.9 Obesity, unspecified; I25.2 Old myocardial infarction; Z85.3 Personal history of malignant neoplasm of breast; N40.0 Benign prostatic hyperplasia without lower urinary tract symptoms; K42.9 Umbilical hernia without obstruction or gangrene; K21.9 Gastro-esophageal reflux disease without esophagitis; Z90.11 Acquired absence of right breast and nipple; Z79.82 Long term (current) use of aspirin; Z88.0 Allergy status to penicillin
CPT/HCPCS: 71010; 74176; 80048; 80076; 81003; 82550 91; 83605; 83690; 83880; 84484; 85025; 85027; 85610; 85730; 93005; 94660; 99281; 99285; G0378; J0360; J1644; J1885; J2270; J2405; J7030

== ENCOUNTER 2017-06-08 13:18 | Day surgery (SDC) | payer OTHER ==
[~2017-06-08] VITALS: Ht 180.3 cm; Wt 94.3 kg
[~2017-06-08 13:18] MED LIST changes: +MIRTAZAPINE30 MG PO; +REMERON30 M2 PO; +ROBAXIN500 MG PO; +ULTRAM50 MG PO; +VALSARTAN80 MG PO
[2017-06-08 14:24] LABS: POINT-OF-CARE METER ID UU14174212
== END 2017-06-08 16:00 | disposition home or self-care (01) ==
LOC: PAIN 13:18 → SDC 14:30 → PAIN 16:00
PROVIDERS: Anesthesiology Pain Medicine
DX: M47.812 Spondylosis without myelopathy or radiculopathy, cervical region (principal); M54.2 Cervicalgia; G89.29 Other chronic pain; M50.31 Other cervical disc degeneration, high cervical region; M47.816 Spondylosis without myelopathy or radiculopathy, lumbar region; I25.10 Atherosclerotic heart disease of native coronary artery without angina pectoris; R51 Headache; E11.9 Type 2 diabetes mellitus without complications; K21.9 Gastro-esophageal reflux disease without esophagitis; I10 Essential (primary) hypertension; E78.5 Hyperlipidemia, unspecified; G47.30 Sleep apnea, unspecified; Z88.0 Allergy status to penicillin; Z79.82 Long term (current) use of aspirin
CPT/HCPCS: 82948; J1030; J2250; J3010; S0020

== ENCOUNTER 2017-06-15 13:47 | Day surgery (SDC) | payer OTHER ==
[~2017-06-15] VITALS: Ht 180.3 cm; Wt 94.3 kg
== END 2017-06-15 15:40 | disposition home or self-care (01) ==
LOC: PAIN 13:47 → SDC 14:30 → PAIN 15:40
PROVIDERS: Anesthesiology Pain Medicine
PROC: 3E0T3TZ Introduction of Destructive Agent into Peripheral Nerves and Plexi, Percutaneous Approach (ICD-10-PCS; principal; 2017-06-15)
PROC: BR141ZZ Fluoroscopy of Cervical Facet Joint(s) using Low Osmolar Contrast (ICD-10-PCS; principal; 2017-06-15)
DX: M47.812 Spondylosis without myelopathy or radiculopathy, cervical region (principal); M54.2 Cervicalgia; G89.29 Other chronic pain; R51 Headache; M47.816 Spondylosis without myelopathy or radiculopathy, lumbar region; I25.10 Atherosclerotic heart disease of native coronary artery without angina pectoris; E11.9 Type 2 diabetes mellitus without complications; I10 Essential (primary) hypertension; E78.5 Hyperlipidemia, unspecified; K21.0 Gastro-esophageal reflux disease with esophagitis; I73.9 Peripheral vascular disease, unspecified; G47.30 Sleep apnea, unspecified; Z79.891 Long term (current) use of opiate analgesic; Z86.73 Personal history of transient ischemic attack (TIA), and cerebral infarction without residual deficits
CPT/HCPCS: 82948; J1030; J2250; J3010; S0020

== ENCOUNTER → 2017-12-27 | Outpatient (CLI) | payer OTHER ==
[~2017-12-27] VITALS: Ht 180.3 cm; Wt 85.3 kg
== END | disposition home or self-care (01) ==
LOC: AMB 06:40
DX: K29.70 Gastritis, unspecified, without bleeding (principal); K22.70 Barrett's esophagus without dysplasia; K44.9 Diaphragmatic hernia without obstruction or gangrene; K21.9 Gastro-esophageal reflux disease without esophagitis; E78.5 Hyperlipidemia, unspecified; I25.10 Atherosclerotic heart disease of native coronary artery without angina pectoris; I25.9 Chronic ischemic heart disease, unspecified; I10 Essential (primary) hypertension; G47.30 Sleep apnea, unspecified; Z85.3 Personal history of malignant neoplasm of breast; Z95.1 Presence of aortocoronary bypass graft; Z95.5 Presence of coronary angioplasty implant and graft; Z79.82 Long term (current) use of aspirin; Z88.0 Allergy status to penicillin
CPT/HCPCS: 88305; 88342 TC; J7643